=== PATIENT | male | born 1945 | race Two or more races ===

== ENCOUNTER 2018-09-21 13:49 | Day surgery (SDC) | payer MEDICARE ==
[2018-09-16 12:41] LABS: BASOPHILS % (AUTO) 0.7 % (0-1); EOSINOPHILS % (AUTO) 0.6 % (0-6); HEMOGLOBIN 13.1 g/dl (14.0-17.9); LYMPHOCYTES # (AUTO) 1.6 X10'3 (1.1-4.8); LYMPHOCYTES % (AUTO) 23.8 % (21-51); MEAN CORPUSCULAR HEMOGLOBIN 29.6 PG (27.0-31.0); MEAN CORPUSCULAR HGB CONC 33.5 g/dL (33.0-36.5); MEAN CORPUSCULAR VOLUME 88.3 FL (78-98); MEAN PLATELET VOLUME 8.2 FL (7.4-10.4); MONOCYTES # (AUTO) 0.6 X10'3 (0-0.9); MONOCYTES % (AUTO) 8.4 % (2-12); NEUTROPHILS # (AUTO) 4.4 X10'3 (1.8-7.7); NEUTROPHILS % (AUTO) 66.5 % (42-75); PLATELET COUNT 223 X10'3 (140-440); RED BLOOD COUNT 4.41 X10'6 (4.70-6.10); WHITE BLOOD COUNT 6.6 X10'3 (4.5-11.0)
[2018-09-16 12:51] LABS: ALBUMIN 3.9 G/DL (3.4-5.0); ANION GAP 6 (8-16); BLOOD UREA NITROGEN 11 MG/DL (7-18); BUN/CREATININE RATIO 11.7 (5.4-32.0); CHLORIDE 98 MMOL/L (99-107); CREATININE 0.94 MG/DL (0.60-1.10); GLUCOSE 183 MG/DL (70-104); POTASSIUM 4.5 MMOL/L (3.5-5.1); SODIUM 133 MMOL/L (135-145); TOTAL CARBON DIOXIDE 28.7 MMOL/L (24-32); eGFR 79 ML/MIN
[2018-09-16 13:32] LABS: PARTIAL THROMBOPLASTIN TIME 40 SECONDS (22-32)
[2018-09-21] VITALS (8 sets, daily range): BP systolic 148–179; BP diastolic 71–89
[~2018-09-21] VITALS: Ht 172.7 cm; Wt 67.7 kg
[2018-09-21] MEDS ORDERED: diphenhydrAMINE 25mg capsule PO PRN (14:25)
[2018-09-21] MEDS ORDERED: LORazepam 0.5 MG tablet PO PRN (14:25)
[2018-09-21] MEDS ORDERED: LIDOcaine/PRILOcaine 5gm cream TP ONE (14:25)
[2018-09-21] MEDS ORDERED: normal saline 1,000 ML IV SCH (14:25)
[2018-09-21] MEDS ORDERED: ASPI-611 PO (15:24)
[2018-09-21] MEDS ORDERED: GLIM4TAB4 PO (15:24)
[2018-09-21] MEDS ORDERED: FLO0.4C PO (15:24)
[2018-09-21] MEDS ORDERED: NITR0.4T48 SL (15:24)
[2018-09-21] MEDS ORDERED: METF500T PO (15:24)
[2018-09-21] MEDS ORDERED: APIX2.5T PO (15:24)
[2018-09-21] MEDS ORDERED: METO-395 PO (15:24)
[2018-09-21] MEDS ORDERED: TRAM50TA2 PO (15:24)
[2018-09-21] MEDS ORDERED: ISOS30TA9 PO (15:24)
[2018-09-21] MEDS ORDERED: fentaNYL/PF 50MCG/1 ML 2ML syringe IV ONE (15:45)
[2018-09-21] MEDS ORDERED: midazolam 2 mg/2 ml injection ONE (17:22)
[2018-09-21] MEDS ORDERED: fentaNYL/PF 50MCG/1 ML 2ML syringe ONE (17:22)
[2018-09-21] MEDS ORDERED: LIDOcaine 1% (10mg/ml)w/preservative injection 20ml MDV ONE (17:22)
[2018-09-21] MEDS ORDERED: iohexol 350MG/ML 100ml bottle IV ONE (17:22)
[2018-09-21] MEDS ORDERED: heparin 1,000unit/ml 10ml vial 10 ML ONE (17:49)
[2018-09-21] MEDS ORDERED: verapamil 2.5 mg/ml inj IV ONE (17:49)
[2018-09-21] MEDS ORDERED: nitroGLYCERIN-Tridil 50MG/D5W 250 ML IV ONE (17:49)
[2018-09-21] MEDS ORDERED: acetaminophen 325mg tablet PO PRN (18:55)
[2018-09-21] MEDS ORDERED: HYDROcodone/acetaminophen 10/325mg tab PO PRN (18:55)
[2018-09-21] MEDS ORDERED: ondansetron/PF 4mg/2ml inj IV PRN (18:55)
[2018-09-21] MEDS ORDERED: HYDROcodone/acetaminophen 5mg/325mg tablet PO PRN (18:55)
[2018-09-21] MEDS ORDERED: proCHLORperazine 10 MG/2 ml inj IV PRN (18:55)
[2018-09-21] MEDS ORDERED: OXAZEpam 15mg capsule PO PRN (18:55)
[2018-09-21] MEDS ORDERED: nitroGLYCERIN 0.4mg SUBLingual tab SL PRN (19:30)
[2018-09-21] MEDS ORDERED: metoprolol succinate 25mg (24-HOUR) SR. Tablet PO SCH (20:00)
[2018-09-22] MEDS ORDERED: traMADol 50MG tablet PO PRN
[2018-09-22] MEDS ORDERED: aspirin 81mg tablet.DR PO SCH (08:00)
[2018-09-22] MEDS ORDERED: tamsulosin 0.4mg capsule PO SCH (08:00)
[2018-09-22] MEDS ORDERED: apixaban 2.5mg tablet PO SCH (08:00)
[2018-09-22] MEDS ORDERED: isosorbide mononitrate 30mg tab.SR.24H PO SCH (08:00)
[2018-09-23] MEDS ORDERED: metFORMIN 500mg tablet PO SCH (08:00)
== END 2018-09-21 21:25 | disposition home or self-care (01) ==
LOC: SSTAY O 13:49
PROVIDERS: ATTEND Internal Medicine Interventional Cardiology
DX: I25.118 Atherosclerotic heart disease of native coronary artery with other forms of angina pectoris (principal); I10 Essential (primary) hypertension; E11.9 Type 2 diabetes mellitus without complications; E78.5 Hyperlipidemia, unspecified; Z79.899 Other long term (current) drug therapy; Z79.84 Long term (current) use of oral hypoglycemic drugs; Z79.82 Long term (current) use of aspirin
CPT/HCPCS: 36415; 80048; 82948; 85025; 85610; 85730; 93005; 93458; 99152; 99153; C1769; C1894; J1644; J2001; J2250; J3010; J7030; Q0163; Q9967; A4620; A6258; C1794; J3490

== ENCOUNTER 2024-02-28 11:27 | Observation (INO) | payer MEDICARE ==
[2024-02-27 20:00] VITALS: RESP 19; O2SAT 98
[~2024-02-28] VITALS: Ht 172.7 cm; Wt 69.9 kg
[~2024-02-28 11:27] MED LIST: APIX2.5T PO; ASPI-611 PO; FLO0.4C PO; GLIM4TAB7 PO; ISOS30TA9 PO; METF500T PO; METO-395 PO; NITR0.4T48 SL; TRAM50TA2 PO
[2024-02-28 12:11] LABS: BASOPHILS # (AUTO) 0.1 X10'3 (0-0.2); BASOPHILS % (AUTO) 0.8 % (0-1); EOSINOPHILS # (AUTO) 0.1 X10'3 (0-0.9); EOSINOPHILS % (AUTO) 1.5 % (0-6); HEMATOCRIT 31.5 % (42.0-52.0); HEMOGLOBIN 10.6 g/dl (14.0-17.9); LYMPHOCYTES # (AUTO) 1.7 X10'3 (1.1-4.8); LYMPHOCYTES % (AUTO) 25.7 % (21-51); MEAN CORPUSCULAR HEMOGLOBIN 29.7 PG (27.0-31.0); MEAN CORPUSCULAR HGB CONC 33.7 g/dL (33.0-36.5); MEAN CORPUSCULAR VOLUME 88.1 FL (78-98); MEAN PLATELET VOLUME 8.3 FL (7.4-10.4); MONOCYTES # (AUTO) 0.6 X10'3 (0-0.9); MONOCYTES % (AUTO) 9.2 % (2-12); NEUTROPHILS # (AUTO) 4.1 X10'3 (1.8-7.7); NEUTROPHILS % (AUTO) 62.8 % (42-75); PLATELET COUNT 236 X10'3 (140-440); RED BLOOD COUNT 3.58 X10'6 (4.70-6.10); RED CELL DISTRIBUTION WIDTH 14.6 % (11.5-14.5); WHITE BLOOD COUNT 6.6 X10'3 (4.5-11.0)
[2024-02-28 12:24] LABS: ALANINE AMINOTRANSFERASE 20 U/L (12-78); ALBUMIN/GLOBULIN RATIO 1.4 (1.1-1.5); ALKALINE PHOSPHATASE 25 IU/L (46-116); ANION GAP 5 (8-16); ASPARTATE AMINO TRANSFERASE 13 U/L (10-37); BILIRUBIN,TOTAL 0.3 MG/DL (0.1-1.0); BLOOD UREA NITROGEN 18 MG/DL (7-18); BUN/CREATININE RATIO 16.2 (10.0-20.0); CALCIUM 8.8 MG/DL (8.5-10.1); CHLORIDE 99 MMOL/L (99-107); CREATININE 1.11 MG/DL (0.60-1.10); GLUCOSE 221 MG/DL (70-104); POTASSIUM 4.7 MMOL/L (3.5-5.1); SODIUM 132 MMOL/L (135-145); TOTAL CARBON DIOXIDE 27.9 MMOL/L (24-32); TOTAL PROTEIN 6.9 G/DL (6.4-8.2); eCRCL 53 ML/MIN; eGFR 64 ML/MIN
[2024-02-28 12:33] LABS: PRO BRAIN NATRIURETIC PEPTIDE 247 PG/ML (0-450)
[2024-02-28] MEDS ORDERED: magnesium sulf-water 4G/100mL 100 ML IV PRN (14:35)
[2024-02-28] MEDS ORDERED: magnesium hydroxide 30ml (MOM) UD suspension PO PRN (14:35)
[2024-02-28] MEDS ORDERED: potassium Cl 20 mEq SR tablet PO PRN ×2 (14:35)
[2024-02-28] MEDS ORDERED: ondansetron/PF 4mg/2ml inj IV PRN (14:35)
[2024-02-28] MEDS ORDERED: mag hydrox/Alum hydrox/simeth 30ml oral suspension PO PRN (14:35)
[2024-02-28] MEDS ORDERED: potassium Cl 40MEQ/1/2NS 520ml 520 ML IV PRN (14:35)
[2024-02-28] MEDS ORDERED: magnesium sulf-water 2g/50mL 50 ML IV PRN (14:35)
[2024-02-28] MEDS ORDERED: morphine 2 MG/ML inj. syringe IV PRN ×2 (14:35)
[2024-02-28] MEDS ORDERED: acetaminophen 325mg tablet PO PRN ×2 (14:35→18:15)
[2024-02-28] MEDS ORDERED: magnesium Cl slow-release 64mg tablet PO PRN (14:35)
[2024-02-28 15:50] LABS: MAGNESIUM 1.5 MG/DL (1.5-2.4); POTASSIUM 5.2 MMOL/L (3.5-5.1)
[2024-02-28] MEDS ORDERED: metoprolol tartrate 1mg/ml inj IV PRN (16:50)
[2024-02-28] MEDS ORDERED: aminophylline 250mg/10ml inj. IV PRN (16:50)
[2024-02-28] MEDS ORDERED: nitroGLYCERIN 0.4mg SUBLingual tab SL PRN ×2 (16:50→16:55)
[2024-02-28] MEDS ORDERED: metoprolol succinate 25mg (24-HOUR) SR. Tablet PO SCH (17:00)
[2024-02-28] MEDS ORDERED: glucagon, human recombinant 1mg kit SUBCUT PRN (17:00)
[2024-02-28] MEDS ORDERED: DEXTROSE 15 GM of carb/4 tabs (each vial/BOTTLE has 4 tablets) PO PRN ×2 (17:00)
[2024-02-28] MEDS ORDERED: dextrose 50%-water 50ml dispensing syringe IV PRN ×2 (17:00)
[2024-02-28] MEDS ORDERED: PANT40TA54 PO (17:01)
[2024-02-28] MEDS ORDERED: ISOS60TA71 PO (17:01)
[2024-02-28] MEDS ORDERED: RAMI10CA78 PO (17:01)
[2024-02-28] MEDS ORDERED: VALS320T17 PO (17:01)
[2024-02-28] MEDS ORDERED: SERT-434 PO (17:01)
[2024-02-28] MEDS ORDERED: AMLO5TAB16 PO (17:01)
[2024-02-28] MEDS ORDERED: ROSU20TA98 PO (17:01)
[2024-02-28 17:27] LABS: CHOL/HDL RATIO 1.8 (0.00-4.99); CHOLESTEROL 105 MG/DL (0-200); HDL CHOLESTEROL 58 MG/DL (35-60); LDL CHOLESTEROL 34 MG/DL (50-100); TRIGLYCERIDES 48 MG/DL (20-135)
[2024-02-28] MEDS: normal saline 1000ml 1,000 ML IV SCH (18:00)
[2024-02-28 18:09] LABS: HEMOGLOBIN A1C 7.9 % (4.5-6.2)
[2024-02-28 18:21] LABS: OSMOLALITY 286 MOSM/K (280-300)
[2024-02-28] MEDS: atorvastatin 20mg tablet PO SCH (19:11)
[2024-02-28] MEDS: INSULIN LISPRO 100 UNIT/ML INSULN.PEN MULTI-DOSE SQ SCH (19:13)
[2024-02-28 20:00] VITALS: BP 151/62; PULSE 65; RESP 13; RESP 19; TEMP 98; O2SAT 100; O2SAT 96
[2024-02-28] MEDS ORDERED: heparin, porcine 5000 units/ml vial SQ SCH (20:00)
[2024-02-28] MEDS: heparin, porcine 5000 units/ml vial SQ SCH (20:00)
[2024-02-28] MEDS: K and/or MAG REPLACEMENT MC SCH (20:00)
[2024-02-28] MEDS: docusate sod 100mg capsule PO SCH (20:00)
[2024-02-28 22:00] VITALS: BP 140/61; PULSE 63; RESP 12; RESP 19; TEMP 97.9; O2SAT 98
[2024-02-29] VITALS (11 sets, daily range): BP systolic 127–170; BP diastolic 50–83; PULSE 59–80; RESP 12–19; TEMP 97.6–97.9; O2SAT 98–100
[2024-02-29 07:47] LABS: BASOPHILS % (AUTO) 0.9 % (0-1); EOSINOPHILS # (AUTO) 0.1 X10'3 (0-0.9); EOSINOPHILS % (AUTO) 1.4 % (0-6); HEMATOCRIT 33.2 % (42.0-52.0); HEMOGLOBIN 11.4 g/dl (14.0-17.9); LYMPHOCYTES # (AUTO) 1.3 X10'3 (1.1-4.8); LYMPHOCYTES % (AUTO) 22.9 % (21-51); MEAN CORPUSCULAR HEMOGLOBIN 30.2 PG (27.0-31.0); MEAN CORPUSCULAR HGB CONC 34.5 g/dL (33.0-36.5); MEAN CORPUSCULAR VOLUME 87.5 FL (78-98); MEAN PLATELET VOLUME 8.7 FL (7.4-10.4); MONOCYTES # (AUTO) 0.5 X10'3 (0-0.9); MONOCYTES % (AUTO) 9.1 % (2-12); NEUTROPHILS # (AUTO) 3.8 X10'3 (1.8-7.7); NEUTROPHILS % (AUTO) 65.7 % (42-75); PLATELET COUNT 242 X10'3 (140-440); RED BLOOD COUNT 3.79 X10'6 (4.70-6.10); RED CELL DISTRIBUTION WIDTH 14.6 % (11.5-14.5); WHITE BLOOD COUNT 5.8 X10'3 (4.5-11.0)
[2024-02-29] MEDS: pantoprazole 40mg Tablet.DR PO SCH (08:09)
[2024-02-29 08:33] LABS: ALANINE AMINOTRANSFERASE 13 U/L (12-78); ALBUMIN 3.8 G/DL (3.4-5.0); ALBUMIN/GLOBULIN RATIO 1.2 (1.1-1.5); ALKALINE PHOSPHATASE 24 IU/L (46-116); ANION GAP 6 (8-16); ASPARTATE AMINO TRANSFERASE 9 U/L (10-37); BILIRUBIN,TOTAL 0.4 MG/DL (0.1-1.0); BLOOD UREA NITROGEN 15 MG/DL (7-18); BUN/CREATININE RATIO 15.2 (10.0-20.0); CALCIUM 8.8 MG/DL (8.5-10.1); CHLORIDE 103 MMOL/L (99-107); CREATININE 0.99 MG/DL (0.60-1.10); GLUCOSE 180 MG/DL (70-104); MAGNESIUM 1.8 MG/DL (1.5-2.4); POTASSIUM 4.5 MMOL/L (3.5-5.1); SODIUM 137 MMOL/L (135-145); TOTAL CARBON DIOXIDE 27.8 MMOL/L (24-32); eCRCL 59 ML/MIN; eGFR 73 ML/MIN
[2024-02-29] MEDS: regadenoson 0.4mg/5ml syringe IV PRN (09:13)
[2024-02-29] MEDS ORDERED: ASPI-1265 PO (13:14)
[2024-02-29] MEDS ORDERED: METO-395 PO ×2 (13:20→15:07)
[2024-02-29] MEDS ORDERED: metoprolol succinate 25mg (24-HOUR) SR. Tablet PO SCH (17:00)
== END 2024-02-29 15:24 | disposition home or self-care (01) ==
LOC: ER 11:28 → ED HOLD 14:34 → UNDOADMIN 14:34 → ED HOLD 17:08 → INTOOBSV 17:08 → ED HOLD 19:30 → PCU 3S 19:30 → UNDODISIN 02-29 15:24
PROVIDERS: ADMIT Family Medicine; ATTEND Family Medicine
DX: R07.89 Other chest pain (principal); E11.65 Type 2 diabetes mellitus with hyperglycemia; I10 Essential (primary) hypertension; K21.9 Gastro-esophageal reflux disease without esophagitis; N17.9 Acute kidney failure, unspecified; E87.1 Hypo-osmolality and hyponatremia; R06.89 Other abnormalities of breathing; Z79.899 Other long term (current) drug therapy; Z98.890 Other specified postprocedural states
CPT/HCPCS: 36415; 71045; 78452; 80053; 80061; 82948; 83036; 83735; 83880; 83930; 84132; 84484; 85025; 87081; 93005; 93017; 93306; 96360; 96361; 96372; 99285; A9500; G0378; J1644; J2785; J7030; J1815